=== PATIENT | female | born 1940 | race Caucasian/White ===

== ENCOUNTER 2017-09-18 04:08 | Emergency (ER) | payer OTHER, BC ==
[~2017-09-18] VITALS: Ht 165.1 cm; Wt 55.1 kg
[2017-09-18 05:24] LABS: HEMATOCRIT 39.9 % (36.0-46.0); HEMOGLOBIN 13.2 G/DL (11.9-15.5); MCHC 33.1 G/DL (30.0-36.0); MCV 90.7 FL (83-99); PLATELET COUNT 228 K/uL (156-360); RBC DIS.WIDTH-CV 13.7 % (11.8-14.6); RBC DIS.WIDTH-SD 46.2 % (39-53); WHITE BLOOD COUNT 5.5 K/uL (4.1-10.2)
[2017-09-18 05:39] LABS: CHLORIDE 101 mEq/L (99-109); SODIUM 140 mEq/L (136-147)
[2017-09-18 05:40] LABS: GLUCOSE 150 mg/dL (70-99)
[2017-09-18 05:44] LABS: CREATININE 0.8 mg/dL (0.6-1.3); GFR ESTIMATE (CALCULATED) > 59 mL/min/
[2017-09-18 05:45] LABS: UREA NITROGEN (BUN) 14 mg/dL (9-23)
[2017-09-18] MEDS ORDERED: CARDIZEM90 MG PO (09:24)
[2017-09-18] MEDS ORDERED: NEURONTIN300 MG PO (09:24)
[2017-09-18] MEDS ORDERED: VITAMIN E400 UNIT PO (09:25)
[2017-09-18] MEDS ORDERED: CYANOCOBALAM1000 MCG PO (09:25)
[2017-09-18] MEDS ORDERED: VITAMIN D31000 UNI2 PO (09:25)
[2017-09-18] MEDS ORDERED: LIPITOR20 MG PO (09:25)
[2017-09-18] MEDS ORDERED: CALCIUM 600 MG1 EACH PO (09:26)
[2017-09-18 12:33] VITALS: BP 147/90
== END 2017-09-18 12:33 | disposition home or self-care (01) ==
LOC: EME 04:08
PROVIDERS: Emergency Medicine
DX: K62.5 Hemorrhage of anus and rectum (principal); R00.0 Tachycardia, unspecified; G89.29 Other chronic pain; K59.09 Other constipation; I10 Essential (primary) hypertension; E78.5 Hyperlipidemia, unspecified; Z90.49 Acquired absence of other specified parts of digestive tract; Z85.3 Personal history of malignant neoplasm of breast; Z90.10 Acquired absence of unspecified breast and nipple
CPT/HCPCS: 71045; 80048; 85027; 85610; 86850; 86900; 86901; 93005; 99281; 99284; J7030